=== PATIENT | male | born 1970 | race Two or more races ===

== ENCOUNTER → 2024-09-27 | Emergency (ER) | payer OTHER ==
[~2024-09-27] VITALS: Ht 167.6 cm; Wt 70.8 kg
[~2024-09-27] MED LIST: ALPRAZOLAM ODT1 MG PO; COZAAR50 MG PO; CRESTOR40 MG PO; NEBIVOLOL HCL10 MG PO; REPATHA SU140 MG/1 M SQ; ZETIA10 MG PO
== END | disposition left against medical advice (07) ==
LOC: ER 23:08
DX: Z53.21 Procedure and treatment not carried out due to patient leaving prior to being seen by health care provider (principal)